=== PATIENT | male | born 2000 | race Caucasian/White ===

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

== ENCOUNTER 2022-09-05 14:18 | Emergency (ER) | payer OTHER, SELFPAY ==
[2022-09-05 14:45] VITALS: BP 125/65; PULSE 55; RESP 16; TEMP 36.7; O2SAT 100
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
== END 2022-09-05 16:18 | disposition home or self-care (01) ==
PROVIDERS: Emergency Provider Nurse Practitioner Family; PCP Pediatrics
DX: T23.571A Corrosion of first degree of right wrist, initial encounter (principal); V43.52XA Car driver injured in collision with other type car in traffic accident, initial encounter; W22.11XA Striking against or struck by driver side automobile airbag, initial encounter
CPT/HCPCS: 99213; A9270; G0463